=== PATIENT | female | born 1965 | race Asian ===

== ENCOUNTER 2021-12-01 17:28 | Emergency (ER) | payer OTHER ==
[2021-12-01 17:42] VITALS: BP 141/83; PULSE 86; RESP 18; TEMP 99.1; BMI 20.1
== END 2021-12-01 18:21 | disposition home or self-care (01) ==
LOC: FER 17:28
DX: Z00.00 Encounter for general adult medical examination without abnormal findings (principal)
CPT/HCPCS: 93005; 99283-25